=== PATIENT | male | born 1975 | race Two or more races ===

== ENCOUNTER 2024-02-19 18:32 | Emergency (ER) | payer MEDICAID, OTHER ==
[~2024-02-19] VITALS: Ht 170.2 cm; Wt 101.0 kg
[2024-02-19 18:43] VITALS: BP 146/78; PULSE 74; RESP 16; TEMP 98.7; O2SAT 98
[2024-02-19] MEDS ORDERED: HYDR-4902 PO (20:51)
[2024-02-19] MEDS: HYDROcodone-ACET 5/325MG TAB PO ONE (21:16)
== END 2024-02-19 21:59 | disposition home or self-care (01) ==
LOC: ER 18:32
DX: S92.421A Displaced fracture of distal phalanx of right great toe, initial encounter for closed fracture (principal); S93.502A Unspecified sprain of left great toe, initial encounter; V87.8XXA Person injured in other specified noncollision transport accidents involving motor vehicle (traffic), initial encounter; Y93.I9 Activity, other involving external motion; Y92.89 Other specified places as the place of occurrence of the external cause; Y99.8 Other external cause status
CPT/HCPCS: 29515; 73630